=== PATIENT | female | born 1965 | race Caucasian/White ===

== ENCOUNTER → 2020-06-28 10:28 | Outpatient (CLI) | payer MEDICARE, MEDICAID, SELFPAY ==
--- NOTE | 2020-06-28 10:31 | XR_ITS ---
PROCEDURE: XR HIP LT 2-3V W/PELVIS CLINICAL INDICATION: pain left hip COMPARISON: No exams were available for comparison FINDINGS: No fracture or dislocation is evident. No significant degenerative change. No lytic or blastic change. Unremarkable soft tissues. Small opacities are present in the pelvis and may represent phleboliths. IMPRESSION: No acute findings. Dictated by: Jgadish Kumar MD 06/28/2020 13:03 Jagdish Kumar MD in [place] 06/28/2020 13:03
== END ==
PROVIDERS: PCP Family Medicine; Visit Provider Family Medicine
DX: M25.552 Pain in left hip (principal)
CPT/HCPCS: 73502

== ENCOUNTER → 2023-09-06 22:43 | Outpatient (CLI) | payer MEDICARE, MEDICAID, SELFPAY ==
[2023-09-06 20:33] LABS: Basophils # 0.1 K/mm3 (0-0.2); Basophils % 0.7 % (0.1-2.0); Eosinophils # 0.2 K/mm3 (0.0-0.4); Eosinophils % 1.7 % (0.1-12.0); Hematocrit 40.1 % (37.0-47.0); Lymphocytes # 2.7 K/mm3 (0.7-4.5); Lymphocytes % 22.9 % (10-50); Mean Corpuscular HGB Conc 34.9 g/dL (31.8-35.4); Mean Corpuscular Hemoglobin 31.1 pg (27.0-31.2); Mean Corpuscular Volume 89.3 fl (81-99); Mean Platelet Volume 10.8 fl (7.4-10.4); Monocytes # 0.6 K/mm3 (0.1-1.0); Monocytes % 5.3 % (1.7-9.3); Neutrophils # 8.1 K/mm3 (1.8-7.8); Neutrophils % 69.5 % (37.0-80.0); Platelet Count 389 K/mm3 (142-424); Red Blood Count 4.49 M/mm3 (4.20-5.40); Red Cell Distribution Width 13.3 % (11.5-17.5); White Blood Count 11.6 K/mm3 (4.8-10.8)
[2023-09-06 20:34] LABS: Alanine Aminotransferase 24 U/L (12-78); Albumin Level 4.4 g/dl (3.5-5.0); Albumin/Globulin Ratio 1.4 (1.1-1.8); Alkaline Phosphatase 94 U/L (38-126); Anion Gap 15.8 mEq/L (5-15); Aspartate Amino Transferase 37 U/L (14-36); Bilirubin,Total 0.2 mg/dl (0.2-1.3); Blood Urea Nitrogen 16 mg/dl (7-17); Calcium 9.6 mg/dl (8.4-10.2); Carbon Dioxide 28 mmol/L (22.0-30.0); Chloride 95 mmol/L (98-107); Cholesterol 223 mg/dl (140-200); Estimated Glomerular Filt Rate 86 ml/min (>60); GFR (African American) 104 ML/MIN (>60); Globulin 3.1 g/dL (1.3-3.2); Glucose 89 mg/dl (74-100); HDL Cholesterol 110 mg/dl (40-60); Potassium 3.8 mmoL/L (3.5-5.1); Sodium 135 mmol/L (136-145); Total Protein,Serum 7.5 g/dl (6.3-8.2); Triglycerides 127 mg/dl (30-150); VLDL Cholesterol 25 mg/dL (0-40)
[2023-09-06 20:44] LABS: Direct LDL Cholesterol 102.73 mg/dL (100-129)
[2023-09-06 20:50] LABS: Free T4 (Free Thyroxine) 1.12 ng/dl (0.78-2.19)
[2023-09-06 21:04] LABS: Thyroid Stimulating Hormone 1.36 uIU/mL (0.465-4.68)
[2023-09-06 21:10] LABS: Hemoglobin A1C 5.3 % (4.0-6.0)
--- OUTSIDE RECORDS SUMMARY | 2023-09-06 22:45 | XMS_ITS | Continuity of Care Document ---
Author Name Unknown Organization [facility] Address [address] [place] [address] Phone Care Team Providers Care Retail Coverage Merchandiser Name Role Phone Raghav ADAME, Fam Unavailable Unavailable Allergies, Adverse Reactions, Alerts Substance Reaction Status Criticality No Known Drug Allergies Active No I nformation Medications Medication Instructions Dosage Effective Dates (start - stop) Status Comments amitriptyline 25 mg tablet take 1 tablet by ORAL route every day at bedtime 25 MG - Active simvastatin 40 mg tablet take 1.5 by Oral route every day 1.5 - Active potassium chloride ER 10 mEq tablet,extended release take 1 Tablet by oral route every day with food 10 MEQ - Active Synthroid 175 mcg tablet take 1 tablet by oral route every day 175 MCG - Active Procedures Procedure Date OFFICE/OUTPATIENT VISIT, EST INJ FORAMEN EPIDURAL L/S INJ FORAMEN EPIDURAL ADD-ON MOD CS BY SAME PHYS, 5 YRS + Ringers lactate infusion ALFENTA 1 ML BUPIVACAINE NO EPI .5% PER 1 ML 014 Betamethasone acet&sod phosp Omnipaque 300-349/ml 1ml
--- OUTSIDE RECORDS SUMMARY | 2023-09-06 22:45 | XMS_ITS | Continuity of Care Document ---
Author Name Unknown Organization [facility] Address [address] [place] [place] [address] Phone Care Team Providers Care Machine Striper Name Role Phone Rudi ADAME, Jere Unavailable Unavailable Allergies, Adverse Reactions, Alerts Substance Reaction Status Criticality No Known Drug Allergies Active No I nformation Medications Medication Instructions Dosage Effective Dates (start - stop) Status Comments Mobic 7.5 mg tablet take 1 tablet by oral route every day - Active [place] 5 mg-325 mg tablet take 1 - 2 Tabl et by Oral route every 4 - 6 hours PRN PAIN. MAX 9 PER DAY - Active promethazine 25 mg tablet take 1 tablet by oral route every 4 - 6 hours as needed 25 MG - Active Ultram 50 mg tablet take 1 tablet by oral route every 6 hours as needed - Active TYLENOL-CODEINE NO.3 (unknown strength) Not Available - Active ZOVIRAX (unknown strength) Not Available - Active ZOCOR (unknown strength) Not Available - A ctive FOLGARD (unknown strength) Not Available - Active ROBAXIN (unknown strength) Not Available - Active OMEGA-3 (unknown strength) Not Available - Active Estrace 0.01% (0.1 mg/gram) vaginal
== END ==
PROVIDERS: PCP Family Medicine; Visit Provider Family Medicine
DX: E11.9 Type 2 diabetes mellitus without complications (principal); R60.9 Edema, unspecified; E78.5 Hyperlipidemia, unspecified
CPT/HCPCS: 80053; 80061; 83036; 84439; 84443; 85025